=== PATIENT | male | born 1960 | race Caucasian/White ===

== ENCOUNTER 2018-01-08 14:32 | Observation (INO) ==
--- NOTE | 2018-01-08 16:33 | Internal Med History&Physical ---
Date of Encounter: 01/08/18 Time of Encounter: 16:54 Internal Medicine - H&P: HPI Chief complaint: chest pain Admitted From: Intrahospital Transfer Plans for Post Hospital Care: Home History of present illness: Mr. Mcgill is a 57 year old male Patient with history of hypertension, high cholesterol, patient having recurrent chest pain and also episode of recurrent palpitation states he gets sudden onset of fast heartbeat and then suddenly will also stop. He presented to [place] emergency room because he has some more chest pain describes as tightness y with some shortness of breath and fatigue EKG was unremarkable troponin was negative he was schedule by primary physician for outpatient echocardiogram and EKG tomorrow transfer here for further evaluation. Initial BP was 151/91 pulse is 76 he is now completely chest pain-free Past Med Surg Social Fam HX - Past Medical History Medical history: hyperlipidemia, hypertension, SVT Psychiatric history: no psych history - Past Surgical History Surgical History: herniorrhaphy Additional surgical history: bilat inguinal hernia repair - Social History Smoking Status: Never smoker Smokeless Tobacco Status: No Alcohol use: occasionally Drug use: none - Family History Father Living Status: Still Living Hx Family Cardiac Disorders: Yes (HTN) Mother Living Status: Hx Family Cardiac Disorders: Yes (CHF) Hx Family Respiratory Disorders: Yes (COPD) Internal Medicine - H&P: Meds Cetirizine HCl [Zyrtec] 10 mg PO DAILY 01/08/18 [History] RX: Lisinopril [Zestril] 2.5 mg PO DAILY 01/08/18 [History] Allergy/AdvReac Type Severity Reaction Status Date / Time No Known Allergies Allergy Verified 01/08/18 12:33 All Systems PM: A 10-system review of systems was performed and is negative for pertinent findings except as documented above in the HPI. - Constitutional Constitutional: as per HPI - Constitutional General appearance: Present: A&O X 3 Exam: done - Head Head exam: Present: atraumatic, normocephalic - Eye Eye exam: Present: PERRL, conjuntiva pink, sclera anicteric Pupils: Present: PERRL - Neck Neck exam general surgery: Present: supple, trachea midline. Absent: lymphadenopathy - Respiratory Respiratory exam: Present: CTAB. Absent: accessory muscle use, rales, rhonchi, wheezes - Cardiovascular Cardiovascular exam: Present: RRR, +S1, +S2. Absent: diastolic murmur, gallop, rubs, systolic murmur - GI/Abdominal GI/Abdominal exam: Present: normal bowel sounds, soft, no peritoneal signs. Absent: distended, tenderness - Extremities Exam Extremities exam: Present: warm, radial pulses palpable and symmetrical. Absent: calf tenderness, cyanotic, pedal edema - Neurological Exam Neurological exam: Present: CN II-XII intact, oriented X3, no focal deficits. Absent: pronater drift, facial droop, speech deficit - Skin Skin exam: Present: dry, intact - Assessment and plan (1) HTN (hypertension) Current Visit: Yes Status: Chronic Assessment and plan: chronic we will resume home medication Qualifiers: Hypertension type: essential hypertension Qualified Code(s): I10 - Essential (primary) hypertension (2) Hyperlipidemia Current Visit: Yes Status: Chronic Assessment and plan: Resume home medication and check a lipid profile in a.m. 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
[2018-01-08] MEDS ORDERED: Acetaminophen 325 MG TABLET PO PRN (16:38)
[2018-01-08] MEDS ORDERED: traMADol 50 MG TABLET PO PRN (16:38)
[2018-01-08] MEDS ORDERED: Naloxone 0.4 MG/ML INJ IVP PRN (16:38)
[2018-01-09 05:24] LABS: Hematocrit 48.2 % (37.5-50.1); Hemoglobin 15.8 g/dL (12.9-16.9); Mean Corpuscular HGB Conc 32.8 g/dL (31.6-35.5); Mean Corpuscular Hemoglobin 29.3 pg (28.0-33.3); Mean Corpuscular Volume 89.4 fL (83.0-100.0); Mean Platelet Volume 9.4 fL (9.4-12.4); Platelet Count 173 K/mcL (140-400); Red Blood Count 5.39 M/mcL (4.19-5.50); Red Cell Distribution Width 12.5 % (11.5-14.5)
[2018-01-09 05:38] LABS: Alanine Aminotransferase 24 Units/L (7-52); Albumin 4.2 g/dL (3.5-5.7); Albumin/Globulin Ratio 1.8 (1.1-2.2); Alkaline Phosphatase 48 Units/L (34-104); Aspartate Amino Transferase 16 Units/L (13-39); BUN/Creatinine Ratio 17 (6-26); Bilirubin,Total 0.5 mg/dL (0.3-1.0); Blood Urea Nitrogen 18 mg/dL (6-20); Carbon Dioxide 28 mEq/L (23-29); Chloride 105 mEq/L (98-107); Chol/HDL Ratio 5.6 (0-4.9); Cholesterol 223 mg/dL (< 200); Globulin 2.4 g/dL (2.4-3.5); Glucose 107 mg/dL (70-105); HDL Cholesterol 40 mg/dL (40-59); LDL Cholesterol,Calculated 165 mg/dL (0-99); Magnesium 1.9 mg/dL (1.6-2.6); Osmolality,Calculated 288 (280-300); Potassium 4.1 mEq/L (3.5-5.1); Sodium 138 mEq/L (136-145); Total Protein 6.6 g/dL (6.4-8.9); Triglycerides 92 mg/dL (< 150); eGFR For Non-African Americans > 60 (> 60)
[2018-01-09] MEDS ORDERED: *HR* Heparin 5,000 UNIT/ML VIAL SQ SCH (06:00)
[2018-01-09 08:37] VITALS: BP 144/99
[2018-01-09] MEDS ORDERED: Loratadine 10 MG TABLET PO SCH (09:00)
--- NOTE | 2018-01-09 11:32 | Discharge Summary ---
- NOTES TO OUTPATIENT PROVIDER Notes to Outpatient Provider: Follow up with PCP in one week. Orders not resulted at time of discharge: Pending orders 01/08/18 16:41 NM zen perf SPECT multi [NM] Routine Date of Encounter: 01/09/18 Time of Encounter: 11:32 - Discharge Diagnosis (1) Chest pain Priority: Primary Status: Acute Qualifiers: Chest pain type: precordial pain Qualified Code(s): R07.2 - Precordial pain (2) HTN (hypertension) Priority: Secondary Status: Chronic Qualifiers: Hypertension type: essential hypertension Qualified Code(s): I10 - Essential (primary) hypertension (3) Hyperlipidemia Priority: Secondary Status: Chronic Qualifiers: Hyperlipidemia type: pure hypercholesterolemia Qualified Code(s): E78.00 - Pure hypercholesterolemia, unspecified; E78.0 - Pure hypercholesterolemia Hospital course: Mr. Mcgill is a 57 year old male with history of hypertension and high cholesterol patient presented to emergency room with intermittent chest pain located at sub sternal region and left chest wall region associated with some palpitations. Patient was admitted in the hospital and placed them on monitor worker. Checked his serial troponin which were negative. Since patient is high risk for ACS he did go for nuclear stress test which came back is negative for any ischemia. So will discharge him home in a stable condition today. - Time Spent with Patient Total time spent providing and/or coordinating discharge services: - Discharge Medications Home Medications: Cetirizine HCl [Zyrtec] 10 mg PO DAILY 01/08/18 [History] Lisinopril [Zestril] 2.5 mg PO DAILY 01/08/18 [History] Allergies/Adverse Reactions: Allergy/AdvReac Type Severity Reaction Status Date / Time No Known Allergies Allergy Verified 01/08/18 12:33 Date of admission: 01/08/18 15:42 Primary care physician: Alyssa Mckinney CNP - Constitutional Vitals: Temp Pulse Resp BP Pulse Ox 98.2 F 82 16 144/99 94 01/09/18 08:36 01/09/18 08:36 01/09/18 08:36 01/09/18 08:36 01/09/18 08:36 General appearance: Present: cooperative, A&O X 3, no acute distress, answers questions appropriately Exam: Gen: Alert, awake, Oriented to time,place and person Chest: Diminished breath sounds B/L, No wheezing, No crackles, No rales Heart: S1S2+ RRR No murmurs Abd: Soft, NT, BS +, No organomegaly Ext: No edema, pulses are palpable, No calf tenderness Neuro : Benign findings Skin: No rash. - Patient Status Disposition: Home, Self-Care Condition: Good Overall status at discharge: patient is back to baseline - Discharge Instructions Follow Up With: Alyssa Mckinney CNP [Primary Care Provider] - (Your appointment has been requested. Our offices will call with an appointment time and date) - Diet and Activity Diet: low salt diet
== END 2018-01-09 12:32 | disposition home or self-care (01) ==
LOC: 3BNU → SUATTDRO 15:42
PROVIDERS: ADMIT Internal Medicine Cardiovascular Disease; ATTEND Family Medicine